=== PATIENT | male | born 1935 | race Caucasian/White ===

== ENCOUNTER 2020-11-14 12:37 | Emergency (ER) | payer OTHER, MEDICAID ==
[~2020-11-14] VITALS: Ht 172.7 cm; Wt 76.2 kg
--- NOTE | 2020-11-14 12:53 | NUR ---
PT IS IN ROOM #1A. DR FRANCISCO EVALUATED THE PT.
[2020-11-14] MEDS ORDERED: ASPIRIN 81 MG TAB.CHEW PO ONE (13:15)
--- NOTE | 2020-11-14 13:15 | NUR ---
DR. VIVEROS SPOKE WITH DR. DR. BANUELOS VIA TELEPHONE.
--- NOTE | 2020-11-14 13:20 | NUR ---
SPOKE WITH MECHE AT [facility], SHE STATED SHE WILL PAGE THE MANAGER [employer] INTERPRE[employer] TO CALL BACK HERE.
[2020-11-14] MEDS ORDERED: ASPIRIN 81 MG TAB.CHEW ONE (13:32)
[2020-11-14 13:36] LABS: BASOPHILS % (AUTO) 0.8 % (0.0-2.0); EOSINOPHILS # (AUTO) 0.1 K/uL (0.0-0.7); EOSINOPHILS % (AUTO) 1.3 % (0.0-7.0); HEMATOCRIT 46.3 % (36.7-47.1); HEMOGLOBIN 15.1 g/dL (12.5-16.3); LYMPHOCYTES # (AUTO) 1.7 K/uL (20.0-40.0); LYMPHOCYTES % (AUTO) 27.1 % (20.5-51.5); MEAN CORPUSCULAR HEMOGLOBIN 28.5 uug (23.8-33.4); MEAN CORPUSCULAR HGB CONC 33 g/dL (32.5-36.3); MONOCYTES # (AUTO) 0.5 K/uL (2.0-10.0); MONOCYTES % (AUTO) 7.4 % (0.0-11.0); NEUTROPHILS # (AUTO) 3.9 K/uL (1.8-8.9); NEUTROPHILS % (AUTO) 63.4 % (38.5-71.5); PLATELET COUNT (AUTO) 404 K/uL (152-348); RED BLOOD CELL COUNT(AUTO) 5.32 MIL/uL (4.06-5.63); WHITE BLOOD COUNT (AUTO) 6.2 K/uL (3.6-10.2)
[2020-11-14 13:47] LABS: BILIRUBIN,TOTAL 0.7 mg/dL (0.2-1.0); POTASSIUM 3.8 mmol/L (3.5-5.1); TOTAL PROTEIN, SERUM 6.9 g/dL (6.4-8.2)
--- NOTE | 2020-11-14 17:06 | NUR ---
EMANUEL TRACK MECHANIC FROM [facility] CALLED WITH TRANSFER INFORMATION. PT IS GOING TO [facility] , ACCEPTING ID DR GUTIERREZ AND JED SALDIVAR. PT ANGELES BE TRANSFERED TO TELEMETRY ROOM #105 [facility]IA [facility]. AUOTORIZATION NUMBER FROM [employer] IS # [id number]. TELEPHONE NUMBER FOR REPORT # [phone]. [facility] IS GOING TO TRACK OILER THE PT AT 1930. [facility] TELEPHONE NUMBER IS #[phone], TALKED TO RA.
--- NOTE | 2020-11-14 18:52 | NUR ---
Report given to overnight babysitter KATIE Foster.
--- NOTE | 2020-11-14 18:57 | NUR ---
Received report from AM nurse regarding this patient
[2020-11-14] MEDS ORDERED: LORAZEPAM 2 MG/1 ML VIAL IV ONE (19:30)
[2020-11-14] MEDS ORDERED: LORAZEPAM 2 MG/1 ML VIAL ONE (19:31)
--- NOTE | 2020-11-14 19:52 | NUR ---
Patient wishes to leave AMA. Patient is cameroonian speaking only. Patient is A/Ox4, is able to ambulate with steady gait. VIET Pierre is able to translate in cameroonian and is at bedside discussing the risks of leaving against medical advice. According to Dr. Pierre, patient is adamant in leaving and going home. Patient verbalizes understanding of risks involved due to leaving against medical advice. Patient has signed AMA form. IV removed. Catheter intact and site benign. Pressure and 4x4 gauze applied to site. No bleeding noted. All belongings returned to patient prior to departure. Addendum: 11/14/20 at 2006 by YASH Patient refused to sign the AMA form, but VIET Pierre states that it is okay to let the patient leave without signing the form.
--- NOTE | 2020-11-14 20:03 | NUR ---
Patients emergency contact has been called, Bethanie the was contacted and translated by silvia Kirkpatricker to inform her that the patient will be going home. will be waiting for him to get home.
--- NOTE | 2020-11-14 20:09 | NUR ---
Called [facility] TELE spoke to charge nurse, James. Informed him that patient has left AMA, and will not be transported for inpatient admission. [facility] was called to cancel transport to [facility].
[2020-11-14 20:36] VITALS: BP 166/69
--- NOTE | 2020-11-14 20:36 | NUR ---
[facility] Dr. Barnes from [facility] aware of patient leaving AMA.
== END 2020-11-14 20:37 | disposition left against medical advice (07) ==
LOC: ER 12:37
DX: R07.89 Other chest pain (principal); U07.1 COVID-19; J12.82 Pneumonia due to coronavirus disease 2019; I44.7 Left bundle-branch block, unspecified; R94.31 Abnormal electrocardiogram [ECG] [EKG]; Z82.49 Family history of ischemic heart disease and other diseases of the circulatory system; R79.89 Other specified abnormal findings of blood chemistry
CPT/HCPCS: 36415; 70030-TC; 71045; 85025; 93005; A4663; J2060; J7030